=== PATIENT | female | born 1980 | race Caucasian/White ===

== ENCOUNTER 2016-12-21 10:06 | Day surgery (SDC) | payer BC ==
--- NOTE | ~2016-12-21 | EGD ---
EGD REPORT [facility] [address] [place] [address] NAME: MARLY KILPATRICK : 76 STATUS : [place] [facility] [place] [id number] AGE: 36 ADM/REG DATE : 12/21/16 MR#: [id number] REPORT SERV DATE: 12/21/16 DICTATED BY: GARRET BOLAÑOS DATE: 12/21/16 REPORT STATUS : Draft TRANSCRIBED BY: [facility] DATE: 12/21/16 Endoscopy Center Patient Name: Marly Kilpatrick Date of : 1980 Attending MD: GARRET BOLAÑOS MD Procedure Date No Time: 12/21/2016 Procedure: Upper GI endoscopy Indications: Dysphagia Referring MD: ASHISH ZAMORA Medicines: Sedation Required Anesthesia Staff Assistance Complications: No immediate complications. Estimated blood loss: None. Procedure: Pre-Anesthesia Assessment: - ASA Grade Assessment: II - A patient with mild systemic disease. After obtaining informed consent, the endoscope was passed under direct vision. Throughout the procedure, the patient's blood pressure, pulse, and oxygen saturations were monitored continuously. The GIF [id number] was introduced through the mouth, and advanced to the third part of duodenum. The upper GI endoscopy was accomplished without difficulty. The patient tolerated the procedure well. 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 Biopsies were taken with a cold forceps for histology. A benign-appearing, intrinsic mild stenosis was found at the gastroesophageal junction and was traversed. A guidewire was placed and the scope was withdrawn. Dilation was performed with a Savary dilator with mild resistance at 51 Fr and mild resistance at 54 Fr. Estimated blood loss: none. The entire examined stomach was normal. The examined duodenum was normal. Impression: - Ectopic gastric mucosa in the upper third of the esophagus. Biopsied. - Benign-appearing esophageal stricture. Dilated. - Normal stomach. - Normal examined duodenum. Recommendation: - Patient has a contact number available for emergencies. The signs and symptoms of potential delayed complications were discussed with the patient. Return to normal activities tomorrow. Written discharge instructions were provided to the patient. EGD REPORT [address] [address] NAME: MARLY KILPATRICK : [birth year] STATUS : REG [facility]#: [id number] AGE: 36 ADM/REG DATE : 12/21/16 MR#: [id number] REPORT SERV DATE: 12/21/16 DICTATED BY: GARRET BOLAÑOS. DATE: 12/21/16 REPORT STATUS : Draft TRANSCRIBED BY: [employer] DATE: 12/21/16 - Soft diet today. - Discharge patient to home. 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 All rights reserved. The codes documented in this report are preliminary and upon flame hardener review may be revised to meet current compliance requirements. GARRET BOLAÑOS MD 12/21/2016 1:03 PM This report has been signed electronically. Number of Addenda: 0 Note Initiated On: 12/21/2016 12:46 PM Scope Withdrawal Time 0 hours 0 minutes 0 seconds [id number] [id number]
[~2016-12-21 10:06] MED LIST: ADVIL PO; ZOL50 PO; [UNRECOGNIZED DRUG - REMARK]
== END 2016-12-21 23:59 | disposition home or self-care (01) ==
LOC: DMU 10:06
PROVIDERS: Internal Medicine Gastroenterology
PROC: 0DB58ZX Excision of Esophagus, Via Natural or Artificial Opening Endoscopic, Diagnostic (ICD-10-PCS; 2016-12-21)
PROC: 0D758ZZ Dilation of Esophagus, Via Natural or Artificial Opening Endoscopic (ICD-10-PCS; principal; 2016-12-21 12:30)
DX: K22.2 Esophageal obstruction (principal); Q40.2 Other specified congenital malformations of stomach; K20.9 Esophagitis, unspecified; F41.9 Anxiety disorder, unspecified; Z88.2 Allergy status to sulfonamides; Z88.5 Allergy status to narcotic agent; Z98.51 Tubal ligation status
CPT/HCPCS: 84703; 88305